=== PATIENT | female | born 1955 | race African-American/Black ===

== ENCOUNTER 2021-11-05 05:50 | Day surgery (SDC) | payer OTHER ==
[~2021-11-05] VITALS: Ht 165.1 cm; Wt 115.9 kg
[~2021-11-05 05:50] MED LIST: ETHYL ALCOHOL 62% ANTISEPTIC NASAL INHALANT 0.6 ML AMPUL NASAL ONE; KETOROLAC TROMETHAMINE 0.5% 5 ML OPHTHALMIC SOLUTION ONE; MOXIFLOXACIN HCL 0.5% 3 ML OPHTHALMIC SOLUTION ONE; PHENYLEPHRINE HCL 2.5% 2 ML OPHTHALMIC SOLUTION ONE; RINGERS SOLUTION,LACTATED 500 ML IV ONE; TROPICAMIDE 1% 2 ML OPHTHALMIC SOLUTION ONE
[2021-11-05] MEDS ORDERED: MIDAZOLAM HCL 2 MG/2 ML VIAL IVP ONE (05:51)
[2021-11-05] MEDS ORDERED: EPINEPHrine 1:1,000 [1 MG/ML] AMP ET ONE (05:51)
[2021-11-05] MEDS ORDERED: BALANCED SALT 15 ML OPHTHALMIC IRRIG.SOLN IO ONE (05:51)
[2021-11-05] MEDS ORDERED: LIDOCAINE/PF 1% 2 ML VIAL CAUDAL ONE (05:51)
[2021-11-05] MEDS ORDERED: HYALURONATE SOD/CHONDROITIN SOD 0.5 ML VIAL IO ONE (05:51)
[2021-11-05] MEDS ORDERED: FentaNYL CITRATE PF 100 MCG/2 ML VIAL IVP ONE (05:51)
[2021-11-05] MEDS ORDERED: POVIDONE-IODINE 10% 15 ML SOLUTION UD TP ONE (05:51)
[2021-11-05] MEDS ORDERED: PrednisoLONE ACETATE 1% 5 ML OPHTHALMIC SUSPENSION AD ONE (05:51)
[2021-11-05] MEDS ORDERED: HYALURONATE SOD 8.5MG/0.85ML 10 MG/ML SYRINGE IO ONE (05:51)
[2021-11-05] MEDS ORDERED: TETRACAINE HCL/PF 0.5% 4 ML OPHTHALMIC SOLUTION OD ONE (05:51)
[2021-11-05 06:17] LABS: COVID AG,FIA SOURCE NASOPHARYNGEAL
[2021-11-05] MEDS: TROPICAMIDE 1% 2 ML OPHTHALMIC SOLUTION OD SCH ×3 (06:20→06:30)
[2021-11-05] MEDS: PHENYLEPHRINE HCL 2.5% 2 ML OPHTHALMIC SOLUTION OD SCH ×3 (06:20→06:30)
[2021-11-05] MEDS: KETOROLAC TROMETHAMINE 0.5% 5 ML OPHTHALMIC SOLUTION OD SCH ×3 (06:20→06:30)
[2021-11-05] MEDS: MOXIFLOXACIN HCL 0.5% 3 ML OPHTHALMIC SOLUTION OD SCH ×3 (06:20→06:30)
[2021-11-05] MEDS ORDERED: EPINEPHrine 1:1,000 [1 MG/ML] AMP ONE (06:21)
[2021-11-05] MEDS ORDERED: LIDOCAINE/PF 1% 2 ML VIAL ONE (06:21)
[2021-11-05] MEDS ORDERED: PrednisoLONE ACETATE 1% 5 ML OPHTHALMIC SUSPENSION ONE (06:23)
== END 2021-11-05 08:45 | disposition home or self-care (01) ==
LOC: SURGERY 05:50
DX: H25.11 Age-related nuclear cataract, right eye (principal); I10 Essential (primary) hypertension; H40.033 Anatomical narrow angle, bilateral; Z79.899 Other long term (current) drug therapy; Z98.890 Other specified postprocedural states
CPT/HCPCS: 66984; 87426; 93005; C9803; J0171; J2250; J3010; J3490; J7120; V2632